=== PATIENT | female | born 1975 | race Caucasian/White ===

== ENCOUNTER → 2021-03-26 | Outpatient (CLI) | payer BC ==
[2021-03-26 15:11] LABS: HEMOGLOBIN 11.9 gm/dl (12.3-15.3); RED BLOOD COUNT 3.55 M/UL (4.00-5.10); WHITE BLOOD COUNT 9.5 K/UL (4.5-11.0)
[2021-03-26 15:16] LABS: BUN/CREATININE RATIO 20 (0-10)
[2021-03-27 08:14] LABS: RHEUMATOID ARTHRITIS FACTOR <10.0 IU/mL (<14.0)
[2021-03-27 13:14] LABS: ALDOLASE 3.3 U/L (3.3-10.3); ANGIOTENSIN-CONVERTING ENZYME 47 U/L (14-82)
== END ==
LOC: LAB 14:17
PROVIDERS: Internal Medicine
DX: M25.50 Pain in unspecified joint (principal); D89.89 Other specified disorders involving the immune mechanism, not elsewhere classified; R76.8 Other specified abnormal immunological findings in serum; M05.79 Rheumatoid arthritis with rheumatoid factor of multiple sites without organ or systems involvement; M79.10 Myalgia, unspecified site; R21 Rash and other nonspecific skin eruption; M19.071 Primary osteoarthritis, right ankle and foot; M19.072 Primary osteoarthritis, left ankle and foot; Z92.29 Personal history of other drug therapy; Z79.899 Other long term (current) drug therapy
CPT/HCPCS: 36415; 73130; 73630; 80053; 82085; 82164; 82550; 82728; 83520; 85025; 85652; 86140; 86200; 86431